=== PATIENT | female | born 1955 | race Caucasian/White ===

== ENCOUNTER 2016-12-06 11:50 | Emergency (ER) | payer BC, OTHER ==
[~2016-12-06] VITALS: Ht 170.2 cm; Wt 109.0 kg
[2016-12-06 11:52] VITALS: Ht 170.2 cm; Wt 109.0 kg
[2016-12-06] MEDS ORDERED: SULF1TAB31 PO (12:26)
[2016-12-06] MEDS ORDERED: IBUP-1542 PO (12:26)
[2016-12-06] MEDS ORDERED: LIDOCAINE 1% (MDV) 20 ML INJ SC ONE (12:30)
--- NOTE | 2016-12-06 12:46 | ERD ---
ER Documentation Chief Complaint Date/Time DATE: 12/06/16 TIME: 12:43 Chief Complaint RASH ON CLEAVAGE HPI 61-year-old female presents with a right breast abscess,states her symptoms started approximately 2 weeks ago, she is currently taking Keflex that was prescribed at the [facility]. She is taking 500 mg 4 times a day, she states that the area is slowly draining pus. She denies fevers or chills. 61- year-old female presents with ROS All systems reviewed and are negative except as per history of present illness. Medications Home Meds Active Scripts Ibuprofen* (Motrin*) 600 Mg Tab, 600 MG PO Q6, #30 TAB Prov:VINCE OCHOA PA-C 12/06/16 Sulfamethoxazole/Trimethoprim* (Bactrim Ds* Tablet) 1 Each Tablet, 1 TAB PO BID , #14 TAB Prov:VINCE OCHOA PA-C 12/06/16 PMhx/Soc History of Surgery: No Anesthesia Reaction: No Hx Neurological Disorder: No Hx Respiratory Disorders: No Hx Cardiac Disorders: Yes (HTN) Hx Psychiatric Problems: No Hx Miscellaneous Medical Probl: No Hx Alcohol Use: No Hx Substance Use: No Hx Tobacco Use: Yes Smoking Status: Current every day smoker Physical Exam Vitals Vital Signs Date Time Temp Pulse Resp B/P Pulse Ox O2 Delivery O2 Flow Rate FiO2 12/06/16 11:52 99.5 87 18 134/65 97 Physical Exam General: Well-developed, well-nourished. The patient appears in no acute distress. HEENT: Head is normocephalic, atraumatic. No scleral icterus. Neck: Supple. Nontender. Lungs: Clear to auscultation. Normal air movement. Heart: Regular rate and rhythm. S1 and S2 are normal. No murmurs, gallops, or rubs. Abdomen: Nondistended. Extremities: Right medial breast has a 2cm abscess with fluctuance. Mild surrounding cellulitis. Neurologic: Alert and oriented 3. No focal deficits. Normal speech and gait. Skin: Normal turgor. No rash or lesions. Results 24 hrs Current Medications Medications (Trade) Dose Ordered Sig/Toni Route PRN Reason Start Time Stop Time Status Last Admin Dose Admin Lidocaine (Xylocaine 1% (Mdv) 20 ml) 20 ml ONCE ONCE SC 12/06/16 12:30 12/06/16 12:31 DC Procedures/MDM Abscess Incision and Drainage with irrigation by me: Patient was verbally consented Location: Right upper breast/chest wall Anesthesia: Local 1% Lidocaine Technique: Irrigated. Disrupted loculations w/ instrumentation Packing: None Complications: Neurovascularly intact post procedure 48 hour wound check. Scar minimization instructions given. Patient's skin symptoms have stabilized while they have been evaluated in the department and are appropriate for outpatient care and work up. Exam and w/u not consistent w/ sepsis, deep space infection, or foreign body. Departure Diagnosis: Primary Impression: Abscess Additional Impression: Encounter for incision and drainage procedure Condition: Good Patient Instructions: Abscess, Incision And Drainage Additional Instructions: Wound check in 2 days. VINCE OCHOA PA-C Dec 06, 2016 12:46
== END 2016-12-06 12:46 | disposition home or self-care (01) ==
LOC: FTE 11:50
DX: N61.1 Abscess of the breast and nipple (principal); I10 Essential (primary) hypertension; F17.210 Nicotine dependence, cigarettes, uncomplicated
CPT/HCPCS: 87070